=== PATIENT | female | born 2005 | race Caucasian/White ===

== ENCOUNTER 2025-02-13 10:54 | Emergency (ER) | payer OTHER, SELFPAY ==
[2025-02-13 10:59] VITALS: BP 144/86
--- NOTE | 2025-02-13 12:11 | ED.GENMED ---
History of Present Illness
General
Chief Complaint: Skin Problem
Time Seen by Provider: 02/13/25 11:51
History of Present Illness
History of Present Illness:
19-year-old female with history of anxiety and bipolar presents to the department for evaluation of rash that developed this morning involving the extremities and torso. Feels as though her tongue and lips may be a little swollen. She notes that
she started Trileptal 8 days ago and was wanting rapid up titration of her dose before decreasing the dosage again yesterday. She is on citalopram but has been on this for quite some time. Denies any dysphagia, voice changes, or difficulty
swallowing. No chest pain or shortness of breath.
Review of Systems
Review of Systems
Allergies reviewed?: Yes
All Other Systems: ROS reviewed and negative except as documented in HPI and ROS
Phy Exam
Physical Exam
Physical Exam:
GEN: Well appearing, NAD, WDWN
HEENT: Oral mucosa moist, no scleral icterus, no conjunctivitis
Cardiac: Regular rate
Lung: No respiratory distress, no tachypnea
MSK: No gross deformity or injuries
Skin: Good color, no pallor or jaundice, maculopapular exanthem involving torso and extremities diffusely, no involvement of the palms or soles, no intraoral involvement or mucosal membrane lesions
Neuro: AO x3, moves all extremities freely
Psych: Calm, cooperative
Course
Orders/Labs/Results
Orders:
Orders
02/13/25 12:11
Dexamethasone Pf [Decadron] 10 mg PO NOW STA
Vital Signs
Initial and Last Documented VS:
Initial Vital Signs
Temp Pulse Resp BP Pulse Ox
98.5 F 82 16 144/86 100
02/13/25 10:59 02/13/25 10:59 02/13/25 10:59 02/13/25 10:59 02/13/25 10:59
Last Documented Vital Signs
Temp Pulse Resp BP Pulse Ox
98.5 F 82 16 144/86 100
02/13/25 10:59 02/13/25 10:59 02/13/25 10:59 02/13/25 10:59 02/13/25 12:12
MDM/Problems Addressed
MDM/Problems Addressed:
At this time I do not have clinical concern for [facility], Trileptal is not implicated in this and her symptoms began early in the course of therapy. Will implement adverse reaction to the drug. Will need single dose of steroids and
recommend discontinuation of Trileptal, she is currently in [facility] partial program I will follow-up with her program regarding any change in medications
*Pulse Oximetry
SaO2: 100
Oxygen Mode of Delivery: Room air
Patient hypoxic: no
*Critical Care Note
Total Time (30-74mins, 75-104mins- exclusive of procedures): Not Applicable
ED Attending Note
-
Portions of this chart may have been created with voice recognition software.� Occasional wrong word or��sound alike� substitutions may have occurred due to the inherent limitations of voice recognition software.
Discharge Plan
Departure
Patient Disposition: Home (Routine Discharge)
Date of Disposition: 02/13/25
Time of Disposition: 12:11
Patient with high blood pressure during this ER visit?: No
Discharge Problem:
Drug reaction
Instructions: Skin Rash (DC)
Prescriptions:
New
methylprednisolone [Medrol (Navi)] 4 mg tablets,dose pack
See Rx Instructions .ROUTE .COMPLEX Qty: 21 0RF
Rx Instructions:
orally per package directions
Stand Alone Forms: Back to School
Activity Restrictions/Additional Instructions:
Stop the Trileptal
Do not being the steroid taper for at least 3 days, and only if your rash does not improve
Contact your prescriber regarding this reaction for alternate prescription
Interventions
Interventions:
*Risk Screen - Suicide Last Done: 02/13/25 10:59
*General Assessment Last Done: 02/13/25 10:59
*Neglect/Abuse Screening Last Done: 02/13/25 10:59
*Nursing Disposition Last Done: 02/13/25 12:56
ED-Skin Assessment Last Done: 02/13/25 12:54
Discharge Date and Time
Discharge Date/Time: 02/13/25 12:58
Print Language: MAORI
[2025-02-13] MEDS: DECADRON 10 MG PO (12:19)
== END 2025-02-13 12:58 | disposition home or self-care (01) ==
LOC: EMR 10:54
PROVIDERS: EMERGENCY PHYSICIAN Student in an Organized Health Care Education/Training Program; FAMILY PHYSICIAN Family Medicine
DX: R21 Rash and other nonspecific skin eruption (principal); T42.1X6A Underdosing of iminostilbenes, initial encounter; F31.9 Bipolar disorder, unspecified; F41.9 Anxiety disorder, unspecified
CPT/HCPCS: 99283